=== PATIENT | male | born 1950 | race Caucasian/White ===

== ENCOUNTER 2019-08-19 15:59 | Emergency (ER) | payer BC ==
--- NOTE | 2019-08-19 17:04 | CT ---
CT Brain WO Con: 08/19/2019 4:41 PM CLINICAL HISTORY: Injury, pain. COMPARISON: None. FINDINGS: Hemorrhage: None. Ventricular system: Normal in size and morphology for the patient's age. Cerebral parenchyma: Normal Midline shift: None. Mass: No mass effect. Calvarium: Normal. Visualized Paranasal sinuses: There is opacification of the imaged ethmoid air cells. IMPRESSION: No acute intracranial abnormalities. Opacified ethmoid air cells.
--- NOTE | 2019-08-19 17:09 | CT ---
CT facial bones, noncontrast CLINICAL HISTORY: Pain, injury COMPARISON: None FINDINGS: Facial bones: Bilateral displaced nasal bone fractures. Slight displacement of the nasal process of t he right maxilla. Mildly displaced fracture of the osseous nasal septum. Facial soft tissues: Hematoma and laceration of the nasal soft tissues. Frontal scalp contusion. Orbital contents: No acute abnormality. Paranasal sinuses: Opacified ethmoid air cells. Mucosal thickening of maxillary sinuses. IMPRESSION: Fractures involving bilateral nasal bones, nasal process of right maxilla, and osseous nasal septum, with associated soft tissue injury.
--- NOTE | 2019-08-19 17:18 | CT ---
CT Cervical Spine WO Con Indication: Pain/Injury COMPARISON: None FINDINGS: Acute fracture/subluxation: None Spinal alignment: No acute malalignment. Vertebral body heights: Maintained. Cervical spine degenerative change: Moderate degenerative change of cervical spine is present, greate st inferiorly. IMPRESSION: No acute osseous abnormality.
[2019-08-19] MEDS ORDERED: HYDROcodone/Acetaminophen 10/325 mg Tablet ONE (18:05)
[2019-08-19] MEDS ORDERED: Ibuprofen 800 MG TAB ONE (18:05)
[2019-08-19] MEDS ORDERED: Lidocaine 2% MPF 10 ML AMP (For Epidural Use) ONE (19:17)
[2019-08-19] MEDS ORDERED: Lidocaine 1% w/Epinephrine 1:100K 20 ML VIAL ONE (19:19)
== END 2019-08-19 20:00 | disposition home or self-care (01) ==
LOC: ERS 15:59
DX: S02.2XXB Fracture of nasal bones, initial encounter for open fracture (principal); I10 Essential (primary) hypertension; J44.9 Chronic obstructive pulmonary disease, unspecified; Z79.899 Other long term (current) drug therapy; W01.0XXA Fall on same level from slipping, tripping and stumbling without subsequent striking against object, initial encounter
CPT/HCPCS: 70450; 70486; 72125; J2001